=== PATIENT | male | born 1955 | race African-American/Black ===

== ENCOUNTER 2022-09-25 01:18 | Emergency (ER) | payer MEDICARE, OTHER ==
[~2022-09-25] VITALS: Ht 177.8 cm; Wt 90.7 kg
--- NOTE | 2022-09-25 01:33 | NUR ---
BIBFAMILY. R OUTER CANTUS OF THE EYE LACERATION S/P TRIP AND FALL. DENIES KO +BLOODTHINNER -NEURO DEFECITS. FAMILY AT BEDSIDE.
[2022-09-25] MEDS ORDERED: LIDOCAINE 1%-EPI 1:100,000 20 ML VIAL ONE (01:47)
[2022-09-25] MEDS ORDERED: TDAP [DIPH/PERTUSSIS/TET] 0.5 ML VIAL IM ONE (02:00)
[2022-09-25] MEDS ORDERED: LIDOCAINE 1%-EPI 1:100,000 50 ML VIAL IJ ONE (02:00)
--- NOTE | 2022-09-25 02:03 | NUR ---
MD AT BEDSIDE FOR SUTURES
--- NOTE | 2022-09-25 02:09 | NUR ---
BIBFAMILY. TO ER BED 4. AAOX4. NOT IN RESP DISTRESS. AMBULATORY. BROUGHT IN FOR A LACERATION ON HIS R OUTER EYE AREA S/P TRIP AND FALL. PT DENIES KO PRE AND POST INCIDENT. PT IS TAKING XARELTO. WOUND IS 2CM, NON APPROXIMATED, MIN BLEEDING. MD IS AT THE BEDSIDE FOR SUTURING.
--- NOTE | 2022-09-25 02:37 | NUR ---
PT BEING TRANSPORTED TO CT
--- NOTE | 2022-09-25 02:51 | NUR ---
PT RETURNED FROM CT
--- NOTE | 2022-09-25 02:51 | NUR ---
PT BACK FROM CT
--- NOTE | 2022-09-25 02:53 | NUR ---
DTAP NOT GIVEN, PT REFUSED.
--- NOTE | 2022-09-25 05:00 | NUR ---
SPOKE WITH RUFINA HEALY FROM [facility]. SHE IS AWAITING FOR TRANSPORT. PER NIRAJ EARLIERST ETA IS @ 0900. SHE IS ALSO AWAITING DR. GOMEZ'S REPLY IS PT CAN BE PICKED UP AT 0900 OR BE SENT RIGHT AWAY. SHE WILL BE CALLING ME BACK FOR UPDATE. WHILE AWAITING FOR TRANSPORT NEURO CHECK AND VITALS IS TO BE DONE EVERY 15MIN. MADE AWARE
--- NOTE | 2022-09-25 05:06 | NUR ---
FOLLOWED UP WITH [facility] FOR HEAD CT READING
[2022-09-25 05:41] VITALS: BP 130/75
--- NOTE | 2022-09-25 05:41 | NUR ---
Patient discharged to home in stable condition. Written and verbal after care instructions given. Patient verbalizes understanding of instruction.
== END 2022-09-25 05:42 | disposition home or self-care (01) ==
LOC: ER 01:24
DX: S01.111A Laceration without foreign body of right eyelid and periocular area, initial encounter (principal); R51.9 Headache, unspecified; I10 Essential (primary) hypertension; I48.91 Unspecified atrial fibrillation; E11.9 Type 2 diabetes mellitus without complications; W01.0XXA Fall on same level from slipping, tripping and stumbling without subsequent striking against object, initial encounter; Y93.89 Activity, other specified; Y92.89 Other specified places as the place of occurrence of the external cause; Y99.8 Other external cause status
CPT/HCPCS: 99284; 70450; 12013; J3490 ×2